=== PATIENT | male | born 1960 | race Caucasian/White ===

== ENCOUNTER → 2022-08-28 | Outpatient (CLI) | payer MEDICAID, SELFPAY ==
--- NOTE | 2022-08-28 11:06 | MRI_ITS ---
STUDY: MRA CHEST WITH AND WITHOUT CONTRAST REASON FOR EXAM: Male, 62 years old. DILATED AORTIC ROOT- compare to provided previous images from [facility] TECHNIQUE: Source images were obtained, MIPs were performed. The study was performed unenhanced. . 3D images were obtained. W WO 30ml CLariscan via IVcontrast material was administered intravenously for the contrast portion of the examination. Comparison: 03.01.22 FINDINGS: The visualized lungs are unremarkable. There is no demonstrated pleural abnormality. Normal heart and pericardium. Normal mediastinum. Normal hilar regions. Normal unenhanced pulmonary arteriesPrior aortic root was 5.1cm. There is an ascending thoracic aortic aneurysmal dilation measuring 51 x 51 mm. This is stable. There is atherosclerotic calcification of the aortic arch with tortuosity and elongation of the aortic arch and descending thoracic aorta. Normal osseous structures. There is no demonstrated abnormality of the visualized upper abdomen. MRI/MRA Chest W/ or W/O Contrast IMPRESSION: There is an ascending thoracic aortic aneurysmal dilation measuring 51 x 51 mm. This is stable Electronically Signed: Jaydon Savage MD at 18:44 EDT ,
[2022-08-28 11:30] VITALS: BP 188/66; PULSE 80; RESP 16; O2SAT 94
[2022-08-28 11:45] VITALS: BP 198/100; PULSE 85; RESP 16; O2SAT 95
[2022-08-28 12:00] VITALS: BP 143/82; PULSE 85; RESP 16; O2SAT 93
[2022-08-28 12:08] VITALS: BP 169/98; PULSE 85; RESP 16; O2SAT 94
[2022-08-30 08:44] LABS: CREATININE FINGERSTICK 1.64 mg/dL (0.70-1.30); EGFR FINGERSTICK 45 mL/min (>60)
== END | disposition home or self-care (01) ==
DX: I77.810 Thoracic aortic ectasia (principal)
CPT/HCPCS: 71555; A9575; C8911